=== PATIENT | female | born 1980 | race Caucasian/White ===

== ENCOUNTER 2020-10-19 08:07 | Outpatient (CLI) | payer BC, SELFPAY ==
--- NOTE | 2020-10-19 08:14 | US_ITS ---
WS: [id number] ULTRASOUND PELVIS TECHNIQUE: Transabdominal. CLINICAL INFORMATION: PELVIC PAIN LMP: : No. COMPARISON: None. FINDINGS: Uterus Orientation: Anteverted. Size: 9.3 cm x 6.0 cm x 4.9 cm Masses: None. Cervix: Normal Endometrium: Normal. Endometrium thickness: 0.8 cm. Adnexa: Dominant right follicle measuring 1.5 x 1.5 x 1.2 cm Right ovary size: 4.2 cm x 3.6 cm x 2.0 cm. Right ovary volume: 15.3 ccm3 Left ovary size: 3.8 cm x 4.3 cm x 1.9 cm. Left ovary volume: 16.6 ccm3 Free fluid: None. Other findings: None. US/US pelvic complete* [id number] IMPRESSION: 1. Uterus is normal in appearance. Endometrium measures 8.0 mm. 2. Normal cervix. 3. No free fluid in the cul-de-sac. 4. Both ovaries are normal in appearance.
--- NOTE | 2020-10-19 08:14 | US_ITS ---
WS: [id number] ULTRASOUND THYROID TECHNIQUE: Ultrasound of the thyroid. CLINICAL INFORMATION: THYROID NODULE COMPARISON: None. FINDINGS: Thyroid: Right and left thyroid lobes are normal in size and echotexture. Incidental colloid cyst cyst right mid thyroid measuring 4 mm Solid nodule upper pole left thyroid measuring 9.1 x 7.0 x 5.3 mm. Right thyroid lobe: 5.1 cm x 1.5 cm x 1.3 cm Left thyroid lobe: 4.6 cm x 1.3 cm x 1.3 cm. Isthmus: 0.2 mm. Cervical lymphadenopathy: Incidental bilateral lymph nodes. US/US thyroid [id number] IMPRESSION: 1. Normal thyroid echotexture bilaterally. 2. Incidental colloid cyst cyst right mid thyroid measuring 4 mm 3. Solid nodule upper pole left thyroid measuring 9.1 x 7.0 x 5.3 mm. Recommen d 12 month follow-up.
== END 2020-10-19 08:08 | disposition home or self-care (01) ==
PROVIDERS: PCP Family Medicine; Visit Provider Family Medicine
DX: R10.2 Pelvic and perineal pain (principal); E04.1 Nontoxic single thyroid nodule
CPT/HCPCS: 76536; 76856

== ENCOUNTER 2021-09-28 08:56 | Emergency (ER) | payer BC, SELFPAY ==
--- NOTE | 2021-09-28 09:03 | W.ED.GENADLT ---
HPI - General Adult General: Chief complaint: Extremity Injury, Upper Stated complaint: L hand lac Time Seen by Provider: 09/28/21 08:57 Source: patient Mode of arrival: ambulatory Limitations: no limitations History of Present Illness: 40-year-old female presents emergency room with a laceration on the webbing between the first and second finger left hand she was trying to open a bottle there is a sharp edge to the plastic initially twisted she caught the webbing between the thumb and index finger on the left. She is up-to-date on her tetanus no other injuries Onset (ago): minute(s) Location: left and upper extremity (Hand) Severity: mild Relieving factors: none Exacerbating factors: none PFSH ED PFSH: Medical History No pertinent past medical history Surgical History H/O breast augmentation Family History Sister Cancer Grandfather Cancer Other Hypertension Social History Smoking and tobacco status: never smoked Alcohol intake: never Physical Exam Const: COMMON NORMALS: no acute distress GENERAL APPEARANCE: cooperative and comfortable ORIENTATION/CONSCIOUSNESS: Yes awake, Yes oriented to person, Yes oriented to place and Yes oriented to time HENMT: COMMON NORMALS: normocephalic, atraumatic and hearing grossly normal bilaterally HEAD & SCALP: normocephalic and atraumatic Neuro: SENSORIUM/ORIENTATION: Yes oriented to person, Yes oriented to place and Yes oriented to time Procedures Laceration Laceration 1: Site: hand Side (If applicable): left Size (cm): 1 Description: linear Depth: simple, single layer Pre-repair: irrigated extensively Skin layer closed with: other (Prolene) Size (cm): 4-0 Number of sutures: 1 Course Vital Signs: Vital signs: Vital Signs Temperature 97.9 F 09/28/21 09:07 Pulse Rate 79 09/28/21 09:07 Respiratory Rate 17 09/28/21 09:07 Blood Pressure 126/74 09/28/21 09:07 Pulse Oximetry 99 09/28/21 09:07 MDM - General Adult Medical Decision Making 1 cm Laboratory laceration on the interspace webbing between the first and second fingers on the left hand there is a small amount of bleeding there is no significant gapping. I recommended to the patient that we just place a single suture for approximation of the skin edges and he hemostasis. Single suture was placed without anesthesia as the anesthesia would probably incur more pain in the placement of the single suture. Suture was placed without any significant discomfort tied off there is good approximation cosmesis and hemostasis. Patient tolerated well wound care instructions given apply topical Vaseline-based antibiotic ointment twice a day remove sutures in 10 days with your primary care physician return if has any signs of infection. Discharge Plan Discharge Patient Disposition: Home Clinical Impression: Laceration Condition: Stable Prescriptions: New bacitracin 500 unit/gram ointment 1 applic topical BID Qty: 14 0RF No Action Contrave 8-90 mg tablet extended release 1 tab PO QAM Qty: 70 0RF Rx Instructions: Take 1 daily for 1 week, then 1 bid for 1 week, the 2 in Am and 1 in PM for 1 week, then 2 bid. 340 B Discharge Orders: Discharge ED (Routine); Ordered 09/28/21 Ordered By: Aman Cannon Referrals: Bogdan Alcazar MD [Primary Care Provider] - Patient Instructions: Opioid Safety Activity Restrictions/Additional Instructions: Sutures in 7 to 10 days. Coding Level of Care Code ED Medical Aides Teacher for Krystle Lundberg
[2021-09-28 09:07] VITALS: BP 126/74; PULSE 79; RESP 17; TEMP 36.6; O2SAT 99; BMI 23.3
[2021-09-28 09:32] VITALS: BP 102/75; PULSE 70; RESP 16; TEMP 36.7; O2SAT 99
[2021-09-28 09:39] VITALS: BP 102/75; PULSE 70; RESP 16; TEMP 36.7; O2SAT 99
== END 2021-09-28 09:42 | disposition home or self-care (01) ==
PROVIDERS: Emergency Provider Family Medicine; PCP Family Medicine
DX: S61.412A Laceration without foreign body of left hand, initial encounter (principal); W26.8XXA Contact with other sharp object(s), not elsewhere classified, initial encounter
CPT/HCPCS: 12001; 99282

== ENCOUNTER 2021-12-05 09:59 | Outpatient (CLI) | payer BC, SELFPAY ==
--- NOTE | 2021-12-05 10:07 | US_ITS ---
WS: [id number] RIGHT UPPER QUADRANT ULTRASOUND HISTORY: EPIGASTRIC PAIN COMPARISON: 09/12/2016 Liver: 14.9 cm in length. Normal size liver. No bile duct dilatation or mass. Portal Vein: Normal hepatopetal flow with monophasic waveform. Gallbladder: Normally distended gallbladder with no stones or wall thickening. CBD: 0.3 cm Pancreas: Normal size and echogenicity. Right kidney: 10.2 cm in length. Normal size and echogenicity. No hydronephrosis or mass. Aorta and IVC: Unremarkable abdominal aorta and IVC. No ascites. US/US gall bladder [id number] IMPRESSION: Normal RIGHT upper quadrant ultrasound.
== END 2021-12-05 10:00 | disposition home or self-care (01) ==
PROVIDERS: PCP Family Medicine; Visit Provider Clinical Nurse Specialist Adult Health
DX: R10.13 Epigastric pain (principal)
CPT/HCPCS: 76705

== ENCOUNTER → 2022-05-20 11:43 | Outpatient (BNVA) | payer BC, SELFPAY | PROVIDERS: PCP Family Medicine; Visit Provider Family Medicine | DX: D22.9 Melanocytic nevi, unspecified (principal) | CPT/HCPCS: 88304 ==

== ENCOUNTER → 2022-06-05 11:49 | Outpatient (BNVA) | payer BC, SELFPAY | PROVIDERS: PCP Family Medicine; Visit Provider Family Medicine | DX: Z00.00 Encounter for general adult medical examination without abnormal findings (principal); R30.0 Dysuria | CPT/HCPCS: 81000 ==

== ENCOUNTER 2022-08-19 15:14 | Outpatient (CLI) | payer BC, SELFPAY ==
--- NOTE | 2022-08-19 15:45 | XR_ITS ---
WS: [id number] Chest 2 views, 08/19/2022 Clinical Data: cough Comparison: None. Findings: No nodules, masses or effusions are seen. The heart is normal. The pulmonary vascularity is not increased. No pneumonia or pneumothorax is seen. There is a slight levoscoliosis of the upper th oracic spine. XR/XR chest 2V* [id number] Impression: Negative chest.
== END 2022-08-19 15:15 | disposition home or self-care (01) ==
PROVIDERS: PCP Family Medicine; Visit Provider Clinical Nurse Specialist Adult Health
DX: R05.9 Cough, unspecified (principal)
CPT/HCPCS: 71046

== ENCOUNTER → 2022-12-15 10:19 | Outpatient (BNVA) | payer BC, SELFPAY | PROVIDERS: PCP Family Medicine; Referring Provider Family Medicine; Visit Provider Student in an Organized Health Care Education/Training Program | DX: M25.561 Pain in right knee (principal) | CPT/HCPCS: 73560; 73565 ==

== ENCOUNTER 2023-10-23 09:52 | Outpatient (CLI) | payer BC, SELFPAY ==
--- NOTE | 2023-10-23 10:00 | US_ITS ---
WS: [id number] THYROID ULTRASOUND HISTORY: thyroid nodule COMPARISON: 10/19/2020 Right lobe: 1.3 cm x 1.0 cm x 3.9 cm (w x ap x l). Volume: 2.5 cm3. Normal size and echotexture. No significant are dominant nodules are present. Reidentified is benign mid RIGHT colloid cyst measuring 4 x 3 mm. Left lobe: 1.3 cm x 0.9 cm x 3.5 cm (w x ap x l). Volume: 1.8 cm3. Normal sized gland. Very small hypoechoic nodule superior gland measures 0.4 x 0.4 x 0.8 cm. Isthmus: 0.2 cm. IMPRESSION: TI-RADS 2; no suspicious nodules for follow-up or biopsy.
== END 2023-10-23 09:53 | disposition home or self-care (01) ==
LOC: RAD 09:53
PROVIDERS: PCP Family Medicine; Visit Provider Family Medicine
DX: E04.1 Nontoxic single thyroid nodule (principal)
CPT/HCPCS: 76536

== ENCOUNTER → 2023-11-11 11:09 | Outpatient (BNVA) | payer BC, SELFPAY | PROVIDERS: PCP Family Medicine; Visit Provider Clinical Nurse Specialist Adult Health | DX: M25.50 Pain in unspecified joint (principal); M54.9 Dorsalgia, unspecified; K59.01 Slow transit constipation; Z80.0 Family history of malignant neoplasm of digestive organs; N30.00 Acute cystitis without hematuria; M54.50 Low back pain, unspecified; G89.29 Other chronic pain; R10.84 Generalized abdominal pain | CPT/HCPCS: 85025; 85651; 86140; 86431 ==

== ENCOUNTER 2023-12-03 11:39 | Outpatient (CLI) | payer BC, SELFPAY ==
--- NOTE | 2023-12-03 12:00 | XR_ITS ---
WS: [id number] Lumbar spine, 3 views, 12/03/2023 Clinical Data: low back pian Comparison: None. Findings: No compression fractures or subluxation is seen. No disc space narrowing is seen. The transverse proc esses and SI joints are normal. Impression: Negative lumbar spine.
== END 2023-12-03 11:40 | disposition home or self-care (01) ==
LOC: LAB 11:40
PROVIDERS: PCP Family Medicine; Visit Provider Clinical Nurse Specialist Adult Health
DX: M54.50 Low back pain, unspecified (principal)
CPT/HCPCS: 72100

== ENCOUNTER 2024-02-17 10:09 | Outpatient (CLI) | payer BC, SELFPAY ==
--- NOTE | 2024-02-17 10:15 | MR_ITS ---
WS: [id number] MRI RIGHT KNEE HISTORY: right knee pain COMPARISON: None available. Anterior cruciate ligament: Intact. Posterior cruciate ligament: Intact. Medial collateral ligament: Intact. Posterior lateral corner structures: Intact. Medial menisci: Intact. Normal signal, size and shape. Lateral meniscus: Intact. Normal signal, size and shape. Extensor mechanism: Distal quadriceps tendon and patellar tendons are intact. Fluid and soft tissue: No joint effusion. No Arreola's cyst. Osseous and articular structures: Patellofemoral compartment: Joint space is well-maintained. There is mild chondromalacia slightly gre ater involving the medial patellar facet cartilage. There is a very small amount of marrow edema in t he medial facet. Superficial chondromalacia. Medial compartment: Minimal narrowing of the joint space. Cartilage is well preserved with the except ion of a very superficial area of chondromalacia along the femoral condyle towards the intercondylar notch. No full-thickness cartilage defect. No fractures or marrow edema. No osteochondral lesion. Lateral compartment: Negative. MR/MR knee RT wo con* [id number] IMPRESSION: 1. Normal ACL. 2. No meniscal tear. 3. 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 4. Minimal chondromalacia medial femoral condyle towards intercondylar notch. No marrow edema. 5. No osteochondral lesions. 6. No joint effusion.
== END 2024-02-17 10:10 | disposition home or self-care (01) ==
LOC: RAD 10:09
PROVIDERS: PCP Family Medicine; Visit Provider Student in an Organized Health Care Education/Training Program
DX: S83.206A Unspecified tear of unspecified meniscus, current injury, right knee, initial encounter (principal); M25.561 Pain in right knee
CPT/HCPCS: 73721

== ENCOUNTER → 2024-06-06 13:53 | Outpatient (BNVA) | payer BC, SELFPAY | PROVIDERS: PCP Family Medicine; Visit Provider Family Medicine | DX: Z00.00 Encounter for general adult medical examination without abnormal findings (principal); E11.9 Type 2 diabetes mellitus without complications; R63.4 Abnormal weight loss; R30.0 Dysuria | CPT/HCPCS: 80053; 80061; 81000; 84443; 85025; 86140; 87086 ==

== ENCOUNTER → 2024-09-05 16:30 | Outpatient (BNVA) | payer BC, SELFPAY | PROVIDERS: PCP Family Medicine; Visit Provider Family Medicine | DX: N95.1 Menopausal and female climacteric states (principal); R63.4 Abnormal weight loss | CPT/HCPCS: 80061; 82672; 84144; 84403; 84443; 86140 ==

== ENCOUNTER 2025-03-05 13:50 | Outpatient (CLI) | payer BC, SELFPAY ==
--- NOTE | 2025-03-05 14:30 | XRR_ITS ---
PROCEDURE INFORMATION: Exam: XR Right Foot Exam date and time: 03/05/2025 2:31 PM Age: 44 years old Clinical indication: Right; RT foot pain after dropping object onto foot; Attn to base of 3rd/4th RT digits TECHNIQUE: Imaging protocol: Radiologic exam of the right foot. Views: 3 or more views. COMPARISON: MR knee RT wo con* [id number] 02/17/2024 10:25 AM FINDINGS: Bones/joints: Three views were obtained. The bones and joints are unremarkable. There is no indication of fracture or foreign body. Soft tissues: No soft tissue abnormalities are present. XR/XR foot RT min 3V* [id number] IMPRESSION: Unremarkable right foot series.
== END 2025-03-05 13:51 | disposition home or self-care (01) ==
PROVIDERS: PCP Family Medicine
DX: S97.81XA Crushing injury of right foot, initial encounter (principal); X58.XXXA Exposure to other specified factors, initial encounter
CPT/HCPCS: 73630

== ENCOUNTER → 2025-07-03 16:35 | Outpatient (BNVA) | payer BC, SELFPAY | PROVIDERS: PCP Family Medicine; Visit Provider Family Medicine | DX: R10.20 Pelvic and perineal pain unspecified side (principal) | CPT/HCPCS: 82672; 84144; 84443 ==

== ENCOUNTER 2025-07-04 15:56 | Outpatient (CLI) | payer BC, SELFPAY ==
[2025-07-04 18:02] LABS: Thyroid Stimulating Hormone 1.63 uIU/mL (0.27-4.20)
== END 2025-07-04 15:57 | disposition home or self-care (01) ==
LOC: LAB 15:57
PROVIDERS: PCP Family Medicine; Visit Provider Family Medicine
DX: R10.20 Pelvic and perineal pain unspecified side (principal)
CPT/HCPCS: 36415; 82672; 84144; 84443

== ENCOUNTER 2025-07-31 17:01 | Outpatient (CLI) | payer BC, SELFPAY ==
--- NOTE | 2025-07-31 17:00 | US_ITS ---
WS: [id number] US pelv w/transvag [id number] HISTORY: pelvic pain COMPARISON: 10/19/2020 Status post hysterectomy. No midline pelvic mass. Right ovary: 3.2 cm x 3.2 cm x 3.0 cm. Normal size and vascularity, no cystic or solid masses. Left ovary: 4.0 cm x 2.8 cm x 3.2 cm. Normal size and vascularity, no cystic or solid masses. Dominant follicle in the LEFT ovary measures 2.7 x 2.2 x 2.0 cm. No free fluid in the cul-de-sac. US/US pelv w/transvag [id number] IMPRESSION: 1. Status post hysterectomy. 2. Dominant LEFT ovarian follicle with a maximum diameter of 2.7 cm.
== END 2025-07-31 17:02 | disposition home or self-care (01) ==
LOC: RAD 17:02
PROVIDERS: PCP Family Medicine; Visit Provider Family Medicine
DX: R10.20 Pelvic and perineal pain unspecified side (principal); Z90.710 Acquired absence of both cervix and uterus; N83.02 Follicular cyst of left ovary
CPT/HCPCS: 76830; 76856